=== PATIENT | female | born 1990 | race Caucasian/White ===

== ENCOUNTER 2022-10-30 10:47 | Outpatient (CLI) | payer OTHER ==
[2022-10-30 11:11] VITALS: BP 108/64; PULSE 97; RESP 17; TEMP 97.2
[2022-10-30 11:38] LABS: Appearance,Urine Clear (Clear); Bilirubin,Urine Negative (Negative); Blood,Urine Negative (Negative); Color,Urine Light Yellow; Glucose,Urine (UA) Negative (Negative); Ketones,Urine Negative (Negative); Leukocyte Esterase,Urine Moderate (Negative); Nitrite,Urine Negative (Negative); Protein,Urine Negative (Negative); Urobilinogen,Urine <0.2 mg/dL (<2.0)
[2022-10-30 11:40] LABS: Bacteria,Urine Occasional /hpf; Mucus,Urine Few /hpf; RBC,Urine 2 /hpf (0-5); Squamous Epithelial Cell,Urine 5 /hpf (0-4); WBC,Urine 15 /hpf (0-5)
--- NOTE | 2022-11-04 09:49 | P.MSEPDOC ---
Presenting Problems - Arrival Data Date of Arrival on Unit: 10/30/22 Time of Arrival on Unit: 10:47 Mode of Transport: Ambulatory - Complaint OB-Reason for Admission/Chief Complaint: Possible Onset of Labor Comment: bronchitis/contractions Medical History - Information : 6 Para: 2 Term: 2 : 0 Abortions: Spontaneous or Elective: 3 Number of Living Children: 2 - Gestational Age Gestational Age by ALAN (wks/days): 33 Weeks and 5 Days - History Complications: Prior , Other Comment: History of isoimmuniztion with prev delivery. CMV infection. Has had one cesearean and one Review of Systems - Review of Systems Constitutional: No problems Breast: No problems ENT: Cough, Nasal congestion Cardiovascular: No problems Respiratory: No problems Gastrointestinal: No problems Genitourinary: No problems Musculoskeletal: No problems Neurological: No problems Skin: No problems Comment: current bronchitis x 1 week no treatment, worsening per pt Vital Signs - Temperature Temperature: 97.2 F Temperature Source: Temporal Artery Scan - Pulse Right Brachial Pulse Rate: 97 Pulse Assessment Method: Automatic Cuff - Respirations Respiratory Rate: 17 Oxygen Delivery Method: Room Air O2 Sat by Pulse Oximetry: 97 - Blood Pressure Right Arm Blood Pressure: 108/64 Blood Pressure Mean: 78 Blood Pressure Source: Automatic Cuff Medical Screen Scoring - Cervical Exam Dilation (cm): 0 Effacement (%): 0 Station: -3 Membranes: Intact - Uterine Contractions Frequency From (mins): 5 Frequency To (mins): 7 Duration From (seconds): 60 Duration To (seconds): 70 Intensity: Mild Resting: Soft to palpation - Assessment - Baby A Baseline FHR: 130 Heart Rate - NICHD Category: Category I (Normal) NST: Reactive Physician Notification - Physician Notified Physician Notified Date: 10/30/22 Physician Notified Time: 12:03 Physician: Lauren Barksdale New Order Received: Yes (d/c follow up in ED) Maternal Triage Index - Urgent/Priority 2 Urgent Priority 2: Yes Provider Notified: Lauren Barksdale Provider Notified Time: 12:03 Criteria Met for Priority 2: 33.5 weeks detectable uterine ctx Disposition - Disposition OB Disposition: Triage, Discharge to home Discharge Date: 10/30/22 Discharge Time: 12:07 I agree with the RN Medical Screening Exam: Yes Case reviewed; plan agreed upon as documented in EMR&OBIX.: Yes Diagnosis: FALSE LABOR BEFORE 37 COMPLETED WEEKS OF GEST, THIRD TRI
== END 2022-10-30 12:07 ==
LOC: FBPOP 10:47
PROVIDERS: ATTEND Obstetrics & Gynecology
DX: O47.03 False labor before 37 completed weeks of gestation, third trimester (principal); R10.84 Generalized abdominal pain; Z3A.33 33 weeks gestation of pregnancy; Z88.8 Allergy status to other drugs, medicaments and biological substances
CPT/HCPCS: 59025; 81001; 87086; G0463; 99213

== ENCOUNTER 2022-11-26 22:38 | Outpatient (CLI) | payer OTHER ==
[2022-11-27 00:36] VITALS: BP 105/72; PULSE 106; RESP 16; TEMP 97.9
--- NOTE | 2022-11-29 06:43 | P.MSEPDOC ---
Presenting Problems - Arrival Data Date of Arrival on Unit: 11/26/22 Time of Arrival on Unit: 22:38 Mode of Transport: Wheelchair - Complaint OB-Reason for Admission/Chief Complaint: Possible Onset of Labor, Rule Out SROM Comment: Pt presents to triage with c/o contractions every 5 minutes for past 3hours. Pt. statest that she has been john for 2 days but they have gotten stronger and. closer together for the last 3 hours.Pt states that her water may have broke around 1800 today Medical History - Information : 6 Para: 2 Term: 2 : 0 Abortions: Spontaneous or Elective: 3 Number of Living Children: 2 - Gestational Age Gestational Age by ALAN (wks/days): 37 Weeks and 5 Days - History Comment: Hx of isoimmunization with previous Review of Systems - Review of Systems Constitutional: No problems Breast: No problems ENT: No problems Cardiovascular: No problems Respiratory: No problems Gastrointestinal: No problems Genitourinary: No problems Musculoskeletal: No problems Neurological: No problems Skin: No problems Vital Signs - Temperature Temperature: 97.9 F Temperature Source: Oral - Pulse Pulse Oximetery Pulse Rate: 106 Pulse Assessment Method: Pulse Oximetry - Respirations Respiratory Rate: 16 Oxygen Delivery Method: Room Air O2 Sat by Pulse Oximetry: 97 - Blood Pressure Right Arm Blood Pressure: 105/72 Blood Pressure Mean: 83 Blood Pressure Source: Automatic Cuff Medical Screen Scoring - Cervical Exam Dilation (cm): 1 Membranes: Intact - Uterine Contractions Intensity: Moderate Resting: Soft to palpation - Assessment - Baby A Baseline FHR: 125 Heart Rate - NICHD Category: Category I (Normal) NST: Reactive Physician Notification - Physician Notified Physician Notified Date: 11/26/22 Physician Notified Time: 23:57 Physician: Devan Newberry New Order Received: Yes - Notification Comment Comment: Dr. Newberry called regarding DOM pt, reviewed pt complaints, G/P, GA, sees high. risk for hx of isoimmunization with previous , vs reviewed, CAT 1 FHT,. irregular contractions, cervical exam, negative amnisure. Orders to discharge home with. antepartum instructions and informed to seek care from high risk if possible due to pt. receiving care with them. Maternal Triage Index - Maternal Triage Index Presenting for scheduled procedure w/no complaint: No - Stat/Priority 1 Stat Priority 1: No - Urgent/Priority 2 Urgent Priority 2: No - Prompt/Priority 3 Prompt Priority 3: No - Non-Urgent/Priority 4 Non-Urgent Priority 4: Yes Criteria Met for Priority 4: Pt presents to triage with c/o contractions every 5 minutes for past 3hours. Pt. statest that she has been john for 2 days but they have gotten stronger and. closer together for the last 3 hours. Pt sees High Risk Dr. Elizabeth at [facility] for hx of isoimmunization but states that she has recently been seeing low risk clinic. due to this baby being Rh negative with no other complications.Pt states that her water may have broke around 1800 today Disposition - Disposition OB Disposition: Discharge to home Discharge Date: 11/27/22 Discharge Time: 00:10 I agree with the RN Medical Screening Exam: Yes Case reviewed; plan agreed upon as documented in EMR&OBIX.: Yes Diagnosis: FALSE LABOR AT OR AFTER 37 COMPLETED WEEKS OF GESTATION
== END 2022-11-27 00:10 | disposition home or self-care (01) ==
LOC: FBPOP 22:38
PROVIDERS: ATTEND Obstetrics & Gynecology
DX: O47.03 False labor before 37 completed weeks of gestation, third trimester (principal); Z3A.37 37 weeks gestation of pregnancy; Z88.8 Allergy status to other drugs, medicaments and biological substances
CPT/HCPCS: 59025; 84112; G0463; 99213